=== PATIENT | male | born 1955 | race Caucasian/White ===

== ENCOUNTER → 2016-04-05 | Day surgery (SDC) | payer BC ==
[~2016-04-05] MED LIST: ALPR1TAB3 PO; AMBI10TA PO; BACT800T5 PO; DO NOT ADM ANY ANTICOAGULANT DRUGS XX PRN; ENOX100P SQ; FERR325T PO; GETGO ROLLING W1 MI1; LANS30CA PO; LISI10TA3 PO; MEGE40SU PO; METO25TA3 PO; PROPOFOL 200 MG/20 ML AMP IV ONE
[2016-04-05 15:47] VITALS: BP 113/63; PULSE 90; RESP 16; TEMP 97.8; O2SAT 95
== END | disposition home or self-care (01) ==
LOC: HSDC 13:50
PROVIDERS: ATTEND Internal Medicine Gastroenterology
DX: K92.2 Gastrointestinal hemorrhage, unspecified (principal); D62 Acute posthemorrhagic anemia; K76.6 Portal hypertension; K31.89 Other diseases of stomach and duodenum; K20.9 Esophagitis, unspecified; K55.069 Acute infarction of intestine, part and extent unspecified; Z79.01 Long term (current) use of anticoagulants